=== PATIENT | female | born 1955 | race Caucasian/White ===

== ENCOUNTER → 2023-06-06 13:56 | Outpatient (REF) | payer MEDICARE, SELFPAY | LOC: RAD 13:56 | PROVIDERS: ATTENDING PHYSICIAN Internal Medicine Hematology & Oncology; FAMILY PHYSICIAN Family Medicine | DX: C83.31 Diffuse large B-cell lymphoma, lymph nodes of head, face, and neck (principal); D50.8 Other iron deficiency anemias; R53.82 Chronic fatigue, unspecified; R53.83 Other fatigue | CPT/HCPCS: 71260; 74177; Q9967 ==

== ENCOUNTER → 2023-08-06 13:35 | Outpatient (REF) | payer MEDICARE, SELFPAY | LOC: RAD 13:35 | PROVIDERS: ATTENDING PHYSICIAN Internal Medicine Hematology & Oncology; FAMILY PHYSICIAN Family Medicine | DX: R53.83 Other fatigue (principal); C83.31 Diffuse large B-cell lymphoma, lymph nodes of head, face, and neck; D50.8 Other iron deficiency anemias; R53.82 Chronic fatigue, unspecified; R22.31 Localized swelling, mass and lump, right upper limb | CPT/HCPCS: 76882 ==

== ENCOUNTER → 2023-11-21 14:28 | Outpatient (REF) | payer MEDICARE, SELFPAY | LOC: WDC 14:28 | PROVIDERS: ATTENDING PHYSICIAN Family Medicine | DX: Z91.89 Other specified personal risk factors, not elsewhere classified (principal); Z12.31 Encounter for screening mammogram for malignant neoplasm of breast; R09.89 Other specified symptoms and signs involving the circulatory and respiratory systems; Z78.0 Asymptomatic menopausal state | CPT/HCPCS: 77063; 77067; 77080; 93306 ==

== ENCOUNTER → 2023-11-30 06:14 | Day surgery (SDC) | payer MEDICARE, SELFPAY ==
[2023-11-30 07:37] LABS: Glucose - Point of Care 96 mg/dl (70-99)
== END ==
LOC: GI 06:14
PROVIDERS: ATTENDING PHYSICIAN Internal Medicine
DX: Z12.11 Encounter for screening for malignant neoplasm of colon (principal); R13.10 Dysphagia, unspecified; K44.9 Diaphragmatic hernia without obstruction or gangrene; Q39.9 Congenital malformation of esophagus, unspecified; K22.2 Esophageal obstruction; K29.60 Other gastritis without bleeding; Z86.0100 Personal history of colon polyps, unspecified; Z53.8 Procedure and treatment not carried out for other reasons; K29.50 Unspecified chronic gastritis without bleeding
CPT/HCPCS: 43249; 43239; G0105; 88305; 82962; 88342

== ENCOUNTER → 2024-03-25 16:40 | Outpatient (REF) | payer MEDICARE, SELFPAY | LOC: RAD 16:40 | PROVIDERS: ATTENDING PHYSICIAN Student in an Organized Health Care Education/Training Program | DX: M79.642 Pain in left hand (principal) | CPT/HCPCS: 73110; 73130 ==

== ENCOUNTER → 2024-05-15 09:35 | Outpatient (REF) | payer MEDICARE, SELFPAY | LOC: RAD 09:35 | PROVIDERS: ATTENDING PHYSICIAN Internal Medicine Gastroenterology; FAMILY PHYSICIAN Student in an Organized Health Care Education/Training Program | DX: K59.00 Constipation, unspecified (principal) | CPT/HCPCS: 74270 ==

== ENCOUNTER → 2024-05-16 10:35 | Outpatient (REF) | payer MEDICARE, SELFPAY | LOC: EMG 10:35 | PROVIDERS: ATTENDING PHYSICIAN Orthopaedic Surgery | DX: R20.0 Anesthesia of skin (principal); G56.03 Carpal tunnel syndrome, bilateral upper limbs | CPT/HCPCS: 95886; 95911 ==

== ENCOUNTER 2024-06-17 20:05 | Emergency (ER) | payer MEDICARE, SELFPAY ==
[2024-06-17 20:07] VITALS: BP 132/79
--- NOTE | 2024-06-17 21:02 | ED.GENMED ---
History of Present Illness
General
Chief Complaint: Musculo-Skeletal Complaint
Time Seen by Provider: 06/17/24 21:02
History of Present Illness
History of Present Illness:
TIME OF INITIAL ENCOUNTER: 9:05 PM
HPI: A couple of weeks ago, the patient had a popping sensation at the back of the left knee. This was not particularly painful at the time. She does not have a history of known arthritis and has had knee injections in the past. About 4 hours
ago, she had relatively abrupt onset pain at the left knee and is unable to bear weight due to severe pain.
EXAM:
GENERAL: Well appearing but appears somewhat uncomfortable related to pain in the left knee
HEENT: Moist oral mucosa
NEUROLOGIC: Excellent strength all extremities, no obvious coordination deficits
PSYCHIATRIC: Appropriate mental status, normal insight and judgement
EXTREMITIES: Elevated BMI, tenderness diffusely at the left knee and tib-fib region, mild left knee effusion, decreased active range of motion at the left knee and ankle due to pain, no pain with passive range of motion of the rotation at the left
hip, mild calf tenderness
SKIN: No rash, no lesions
NUMBER AND COMPLEXITY OF PROBLEMS ADDRESSED AT THE ENCOUNTER
� Chronic conditions affecting care: Non-Hodgkin's lymphoma, diabetes
� Acute Exacerbation and/or Progression of Chronic Illness: This is an acute problem
� Differential Diagnosis includes: Internal derangement of the left knee, progression of osteoarthritis, knee effusion, meniscal injury, ACL/MCL injury
AMOUNT AND/OR COMPLEXITY OF DATA TO BE REVIEWED AND ANALYZED
� I performed an independent evaluation of and my interpretation is:
EKG:
CT:
X-rays: X-rays show osteoarthritis of the left knee with no abnormality at the tib-fib
Laboratory Studies:
Other: Ultrasound shows no DVT, Noonan's cyst noted
� Review of other/old records: I reviewed records, the patient had a colonoscopy last year
� Clinical information was obtained by an independent historian: I spoke to friend at bedside
� Prescriptions/Medications Considered but not given:
� Further testing considered but not performed:
RISK OF COMPLICATIONS AND/OR MORBIDITY OR MORTALITY OF PATIENT MANAGEMENT
� Social determinants of health affecting care: Lives at home
� Discussion with other providers:
� Escalation of care including admission/observation vs risk of discharge considered: X-rays obtained. IM Toradol given.
ANY OTHER UPDATES:
12:15 AM: I reassessed patient. Pain persists. Will give narcotic analgesia and check ultrasound
Report from research technician shows no DVT but Noonan's cyst noted
Past History
Past History
ED Past Medical History: Cancer (Non-Hodgkin's lymphoma) and NIDDM
ED Past Surgical History: Gynecological and Other (Parathyroid tumor removal)
Phy Exam
Physical Exam
Physical Exam:
See HPI
Course
Orders/Labs/Results
Orders:
Orders
06/17/24 21:07
Ketorolac [Toradol] 30 mg IM NOW STA
CR Knee - Left 4 Or More View* Urgent
Comment:
Reason For Exam: pain
CR Leg Tibia/fibula Left 2 Vw Urgent
Comment:
Reason For Exam: pain
06/18/24 00:14
Crutches-Treatment ONCE
Knee Immobilizer Left-Treatmen ONCE
Oxycodone/Acetaminophen [Percocet 5/325] 1 tablet PO NOW STA
US Periph Venous LOWER Ext LT Urgent
Comment:
Reason For Exam: L calf pain
Vital Signs
Initial and Last Documented VS:
Initial Vital Signs
Temp Pulse Resp BP Pulse Ox
37.1 C 82 16 132/79 95
06/17/24 20:07 06/17/24 20:07 06/17/24 20:07 06/17/24 20:07 06/17/24 20:07
Last Documented Vital Signs
Temp Pulse Resp BP Pulse Ox
37.1 C 82 16 132/79 95
06/17/24 20:07 06/17/24 20:07 06/17/24 20:07 06/17/24 20:07 06/17/24 20:07
*Critical Care Note
Total Time (30-74mins, 75-104mins- exclusive of procedures): Not Applicable
ED Attending Note
-
Portions of this chart may have been created with voice recognition software.� Occasional wrong word or��sound alike� substitutions may have occurred due to the inherent limitations of voice recognition software.
Discharge Plan
Departure
Patient Disposition: Home (Routine Discharge)
Date of Disposition: 06/18/24
Time of Disposition: 01:41
Patient with high blood pressure during this ER visit?: Yes
Discharge Problem:
Acute knee pain
Prescriptions:
New
oxycodone-acetaminophen [Percocet] 5-325 mg tablet
1 tab PO Q6HPRN PRN (Reason: pain) Qty: 14 0RF
No Action
celecoxib [Celebrex] 200 mg Capsule
200 mg PO DAILY
furosemide 40 mg Tablet
40 mg PO NOON
bupropion HCl [Wellbutrin SR] 150 mg Tablet Sustained-Release 12 Hr
150 mg PO DAILY
atorvastatin 10 mg Tablet
10 mg PO DAILY
valacyclovir [Valtrex] 500 mg Tablet
500 mg PO BID
Rx Instructions:
am and noon
fluoxetine 60 mg Tablet
60 mg PO DAILY
famotidine 40 mg Tablet
40 mg PO HS
calcium carbonate-vitamin D3 [Calcium + D] 600 mg-5 mcg (200 unit) Tablet
2 tab PO DAILY
aspirin [Aspir-81] 81 mg Tablet,Delayed Release (Dr/Ec)
81 mg PO DAILY
tramadol 50 mg Tablet
50 mg PO DAILY
pantoprazole 20 mg Tablet,Delayed Release (Dr/Ec)
20 mg PO DAILY
trazodone 150 mg Tablet
150 mg PO HS
ascorbate calcium (vitamin C) [Darlene-C] 500 mg Tablet
1 g PO NOON
uowgybkhbn-ylycjid-adlscpri 50-325-40 mg Capsule
1 cap PO Q4H PRN (Reason: migraine)
vitamin B complex [B Complex-Vitamin B12] Tablet
1 tab PO DAILY
calcium carbonate [Tums 500] 500 mg calcium (1,250 mg) Tablet,Chewable
1,000 mg PO TID
gabapentin 100 mg Capsule
100 mg PO TID
metformin 500 mg Tablet Extended Release 24 Hr
1,500 mg PO QPM
naproxen 500 mg Tablet
500 mg PO BID
Vitamin D2 25,000 unit Capsule
50,000 unit PO DAILY
Glucosamine Complex-MSM Capsule
1 cap PO BID
Rx Instructions:
morning and noon
levocetirizine 5 mg Tablet
5 mg PO QPM
Aurora 3 Fish Oil 900-1,400 mg Capsule,Delayed Release(Dr/Ec)
1 cap PO DAILY
melatonin 10 mg Tablet
10 mg PO HS
PreserVision AREDS-2 250-90-40-1 mg Capsule
1 tab PO HS
Alive Premium Adult 80 mcg- 66.7 mg Tablet,Chewable
1 tab PO NOON
Ozempic 2 mg/dose (8 mg/3 mL) Pen Injector
2 mg SC DAILY
Referrals:
Ricardo Hooper PA-C [Specified Professional Personl] - Next open appointment
Gianna Palafox CRNP [Family Provider] -
Activity Restrictions/Additional Instructions:
The x-ray of the left knee shows osteoarthritis. The left tib-fib x-rays are normal. Ultrasound shows no blood clot however a Noonan's cyst is noted may be contributing to your symptoms. I recommend that you follow-up with orthopedics. Return
here if worse or other concerns.
Interventions
Interventions:
*Risk Screen - Suicide Last Done: 06/17/24 20:10
*General Assessment Last Done: 06/17/24 21:17
*Neglect/Abuse Screening Last Done: 06/17/24 20:10
*ED COVID-19 Vaccine History Last Done: 06/17/24 21:17
*Nursing Disposition Last Done: 06/18/24 00:10
ED-Musculoskeletal Assessment Last Done: 06/17/24 21:17
Discharge Date and Time
Print Language: MOLDOVAN
[2024-06-17] MEDS: TORADOL 30 MG IM (21:38)
[2024-06-18] MEDS: PERCOCET 5/325 1 TABLET PO (00:28)
== END 2024-06-18 02:20 | disposition home or self-care (01) ==
LOC: EMR 20:05
PROVIDERS: EMERGENCY PHYSICIAN Emergency Medicine; FAMILY PHYSICIAN Nurse Practitioner Family
DX: M25.562 Pain in left knee (principal); M79.662 Pain in left lower leg; E11.9 Type 2 diabetes mellitus without complications; Z85.72 Personal history of non-Hodgkin lymphomas
CPT/HCPCS: 99284; 96374; 73564; 73590; 93971

== ENCOUNTER → 2024-06-26 12:47 | Outpatient (REF) | payer MEDICARE, SELFPAY ==
[2024-06-26 13:20] LABS: % Basophils 0.5 % (0-2); % Eosinophils 4.4 % (0-6); % Immature Granulocytes 0.3 % (0-0.5); % Lymphocytes 21.4 % (20.5-51.1); % Monocytes 8.2 % (1.7-9.3); % Neutrophils 65.2 % (42.2-75.2); Absolute Eosinophils 0.3 10^3/uL (0-0.7); Absolute Lymphocytes 1.7 10^3/uL (1.2-3.4); Absolute Monocytes 0.6 10^3/uL (0.1-0.6); Hematocrit 38.8 % (37.0-47.0); Mean Corp Hgb Conc. 33.5 g/dL (33.0-37.0); Mean Corpuscular Hgb 31.2 pg (27.0-31.0); Mean Platelet Volume 9.6 fL (7.4-10.4); Nucleated Red Blood Cells % 0 %; Platelet Count 216 10^3/uL (130-400); Red Blood Cell Count 4.17 10^6/uL (4.20-5.40); Red Cell Dist. Width 13.2 % (11.5-14.5); White Blood Cell Count 7.7 10^3/uL (4.8-10.8)
[2024-06-26 14:20] LABS: ALT (SGPT) 17 U/L (0-35); AST (SGOT) 18 U/L (14-36); Albumin 4.3 g/dl (3.5-5.0); Alkaline Phosphatase 60 U/L (38-126); Blood Urea Nitrogen 18 mg/dl (7-17); Calcium 9.4 mg/dl (8.4-10.2); Carbon Dioxide 29 mmol/L (22-30); Chloride 104 mmol/L (98-107); Glucose 101 mg/dl (70-99); LDH 195 U/L (120-246); Potassium 3.7 mmol/L (3.5-5.1); Sodium 140 mmol/L (135-145); Total Bilirubin 0.4 mg/dl (0.2-1.3); eGFR > 60.00
== END ==
LOC: REG 12:47
PROVIDERS: ATTENDING PHYSICIAN Orthopaedic Surgery; FAMILY PHYSICIAN Student in an Organized Health Care Education/Training Program; REFERRING PHYSICIAN Internal Medicine Hematology & Oncology
DX: C83.31 Diffuse large B-cell lymphoma, lymph nodes of head, face, and neck (principal); D50.8 Other iron deficiency anemias; R53.82 Chronic fatigue, unspecified; R53.83 Other fatigue; Z01.818 Encounter for other preprocedural examination
CPT/HCPCS: 36415; 80053; 83615; 85025; 93005

== ENCOUNTER → 2024-07-02 18:00 | Outpatient (REF) | payer MEDICARE, SELFPAY | LOC: RAD 18:00 | PROVIDERS: ATTENDING PHYSICIAN Internal Medicine Hematology & Oncology; FAMILY PHYSICIAN Student in an Organized Health Care Education/Training Program | DX: C83.31 Diffuse large B-cell lymphoma, lymph nodes of head, face, and neck (principal); D50.8 Other iron deficiency anemias; R53.82 Chronic fatigue, unspecified; R53.83 Other fatigue | CPT/HCPCS: 71260; 74177; Q9967 ==

== ENCOUNTER → 2024-11-21 09:56 | Outpatient (REF) | payer MEDICARE, SELFPAY ==
[2024-11-21 11:06] LABS: Hematocrit 35.3 % (37.0-47.0); Hemoglobin 11.5 g/dL (12.0-16.0); Mean Corp Hgb Conc. 32.6 g/dL (33.0-37.0); Mean Corpuscular Volume 88.5 fL (81.0-99.0); Platelet Count 230 10^3/uL (130-400); Red Cell Dist. Width 15.5 % (11.5-14.5)
[2024-11-21 12:03] LABS: Blood Urea Nitrogen 16 mg/dl (7-17); Calcium 9.5 mg/dl (8.4-10.2); Carbon Dioxide 28 mmol/L (22-30); Chloride 105 mmol/L (98-107); Glucose 78 mg/dl (70-99); Potassium 4.6 mmol/L (3.5-5.1); Sodium 139 mmol/L (135-145); eGFR > 60.00
== END ==
LOC: SDSPAT 09:56
PROVIDERS: ATTENDING PHYSICIAN Obstetrics & Gynecology; FAMILY PHYSICIAN Student in an Organized Health Care Education/Training Program
DX: Z01.818 Encounter for other preprocedural examination (principal)
CPT/HCPCS: 36415; 80048; 85027; 86850; 86900; 86901

== ENCOUNTER 2024-11-25 06:24 | Day surgery (SDC) | payer MEDICARE, SELFPAY ==
[2024-11-21 14:01] VITALS: BMI 36.3
[2024-11-25] VITALS (11 sets, daily range): BP systolic 129–141; BP diastolic 60–75; BMI 36.3
[2024-11-25 11:38] LABS: Glucose - Point of Care 96 mg/dl (70-99)
[2024-11-25] MEDS: NORMOSOL-R/PLASMALYTE-A 1000 IV (11:48)
[2024-11-25] MEDS: EMEND 40 MG PO (11:52)
[2024-11-25] MEDS: HEPARIN 5000 UNITS SC (13:25)
[2024-11-25 13:37] LABS: Glucose - Point of Care 92 mg/dl (70-99)
[2024-11-25 17:30] LABS: Glucose - Point of Care 177 mg/dl (70-99)
[2024-11-25] MEDS: ZOFRAN 4 MG IV (17:32)
== END 2024-11-25 19:20 | disposition home or self-care (01) ==
LOC: SDS 06:24
PROVIDERS: ATTENDING PHYSICIAN Obstetrics & Gynecology
DX: N81.2 Incomplete uterovaginal prolapse (principal); N39.3 Stress incontinence (female) (male); N36.41 Hypermobility of urethra
CPT/HCPCS: 57425; 57250; 82962; 86900; 86901; C1763

== ENCOUNTER → 2025-01-14 14:23 | Outpatient (REF) | payer MEDICARE, SELFPAY | LOC: WDC 14:23 | PROVIDERS: ATTENDING PHYSICIAN Student in an Organized Health Care Education/Training Program | DX: Z12.31 Encounter for screening mammogram for malignant neoplasm of breast (principal) | CPT/HCPCS: 77063; 77067 ==